=== PATIENT | female | born 1995 | race Two or more races ===

== ENCOUNTER 2020-06-09 06:06 | Emergency (ER) | payer OTHER ==
[2020-06-09] MEDS ORDERED: ONDANSETRON HCL INJ/PF 4 MG/2 ML SDV IV ONE (08:23)
[2020-06-09] MEDS ORDERED: NORMAL SALINE 1000 ML 1,000 ML IV ONE (08:23)
--- NOTE | 2020-06-09 08:26 | ER Document Report ---
ED GI/ - General Chief Complaint: Nausea/Vomiting Stated Complaint: NAUSEA/VOMITING APPROX 8WKS PREG Time Seen by Provider: 06/09/20 08:21 Notes: CHIEF COMPLAINT: Vomiting and pelvic pain HPI: 24-year-old female presenting to the emergency department complaining of vomiting and pelvic pain. Patient states she developed nausea vomiting over the last 2 days along with significant heartburn. States this was similar to when she was with her son. Patient took a test 2 days ago and it was positive. She believes she is approximately 8 weeks by dates. No vaginal bleeding or discharge but does report right pelvic pain intermittently. Has not yet seen [facility]. ROS: See HPI - all other systems were reviewed and are otherwise negative Constitutional: no fever or recent illness Eyes: no drainage, no blurred vision ENT: no runny nose, no sore throat Cardiovascular: no chest pain Resp: no SOB, no cough GI: + vomiting, no diarrhea, positive pelvic abdominal pain : no dysuria, no vaginal discharge, no vaginal bleeding Integumentary: no rash Allergy: no hives Musculoskeletal: no extremity pain or swelling Neurological: no numbness/tingling, no weakness MEDICATIONS: I agree with the patient medications as charted by the RN. ALLERGIES: I agree with the allergies as charted by the RN. PAST MEDICAL HISTORY/PAST SURGICAL HISTORY: Reviewed and agree as charted by RN. SOCIAL HISTORY: Reviewed and agree as charted by RN. FAMILY HISTORY: No significant familial comorbid conditions directly related to patient complaint EXAM: Reviewed vital signs as charted by RN. CONSTITUTIONAL: Alert and oriented and responds appropriately to questions. Well-appearing; well-nourished HEAD: Normocephalic; atraumatic EYES: PERRL; Conjunctivae clear, sclerae non-icteric ENT: normal nose; no rhinorrhea; moist mucous membranes; pharynx without lesions noted NECK: Supple without meningismus; non-tender; no cervical lymphadenopathy, no masses CARD: RRR; no murmurs, no clicks, no rubs, no gallops; symmetric distal pulses RESP: Normal chest excursion without splinting or tachypnea; breath sounds clear and equal bilaterally; no wheezes, no rhonchi, no rales, ABD/GI: Normal bowel sounds; non-distended; soft, non-tender, no rebound, no guarding; no palpable organomegaly or masses : Female nurse prescription benefit specialist present. External genitalia normal. No skin lesions noted. Pelvic Exam: No active bleeding. No purulent discharge. Cervix appears normal. No CMT. cervical loss is closed. No lesions or masses. Uterus enlarged consistent with 6 to 8-week gestation and non tender. Right/Left adnexa normal size and non tender. BACK: The back appears normal and is non-tender to palpation, there is no CVA tenderness EXT: Normal ROM in all joints; non-tender to palpation; no cyanosis, no effusions, no edema SKIN: Normal color for age and race; warm; dry; good turgor; no acute lesions noted NEURO: Moves all extremities equally; Motor and sensory function intact PSYCH: The patient's mood and manner are appropriate. Grooming and personal hygiene are appropriate. MDM: 24-year-old female presenting with pelvic pain nausea vomiting with . Will obtain screening labs, pelvic ultrasound to evaluate for possible ectopic - Related Data Allergies/Adverse Reactions: No Known Allergies Allergy (Unverified 06/09/20 06:15) Home Medications: Naproxen Past Medical History - Social History Smoking Status: Current Every Day Smoker Frequency of alcohol use: None Drug Abuse: None Family History: Reviewed & Not Pertinent Patient has homicidal ideation: No Past Surgical History: Reports: Hx Section Physical Exam - Vital signs Vitals: Temp Pulse Resp BP Pulse Ox 98.6 F 80 15 170/102 H 98 06/09/20 06:21 06/09/20 06:21 06/09/20 06:21 06/09/20 06:21 06/09/20 06:21 Course - Re-evaluation Re-evalutation: 06/09/20 10:11 Discussed evaluation and results with the patient and her spouse. They have an appointment on Friday at [facility]. Will also give referral to [facility]. Will place patient on Pepcid for reflux. Will place patient on Flagyl for vaginitis. Will place patient on Zofran for nausea. Will place patient on vitamins 06/09/20 10:15 I did discuss with the patient the need to make sure that she gets her blood pressure checked by the [facility] for reevaluation - Vital Signs Vital signs: Temp Pulse Resp BP Pulse Ox 98.6 F 80 15 150/79 H 98 06/09/20 06:21 06/09/20 06:21 06/09/20 06:21 06/09/20 08:24 06/09/20 06:21 - Laboratory Result Diagrams: 06/09/20 08:30 06/09/20 08:30 Laboratory results interpreted by me: 06/09/20 06/09/20 06/09/20 08:30 08:30 08:30 WBC 11.2 H RDW 14.1 H Sodium 136.5 L Beta HCG, Quant 51689.00 H Urine Protein 30 H Urine Ketones 20 H Urine Blood SMALL H Discharge - Discharge Clinical Impression: Reflux gastritis, Bacterial vaginitis Nausea & vomiting Qualifiers: Vomiting type: unspecified Vomiting Intractability: non-intractable Qualified Code(s): R11.2 - Nausea with vomiting, unspecified Qualifiers: Weeks of gestation: less than 8 weeks Qualified Code(s): Z3A.01 - Less than 8 weeks gestation of Ovarian cyst Qualifiers: Laterality: right Qualified Code(s): N83.201 - Unspecified ovarian cyst, right side Subchorionic hemorrhage Qualifiers: Fetus number: single or unspecified fetus Trimester: first trimester Qualified Code(s): O41.8X10 - Other specified disorders of amniotic fluid and membranes, first trimester, not applicable or unspecified; O46.8X1 - Other antepartum hemorrhage, first trimester Condition: Stable Disposition: HOME, SELF-CARE Additional Instructions: Take the medications as prescribed. Follow-up with [facility] for further evaluation and treatment call for appointment. Low grease low spice diet. Do not eat within 2 hours of going to sleep. Elevate the head of your bed 6 inches to help with reflux symptoms. If you have onset of vaginal bleeding return for significant bleeding where you are saturating greater than 2 pads per hour for 2 hours consecutively Prescriptions: Metronidazole [Flagyl 500 mg Tablet] 500 mg PO BID #14 tablet Famotidine [Pepcid 20 mg Tablet] 20 mg PO BID #20 tablet No122/Iron/Folic Acid [ Multi Tablet] 1 each PO DAILY #30 tablet Ondansetron [Zofran Odt 4 mg Tablet] 1 - 2 tab PO Q4H PRN #15 tab.rapdis PRN Reason: For Nausea/Vomiting Referrals: TIKA RODRIGUES MD [ACTIVE STAFF] - Follow up as needed
[2020-06-09 08:56] LABS: ABSOLUTE BASOPHILS # (AUTO) 0.1 10^3/uL (0.0-0.2); ABSOLUTE EOSINOPHILS # (AUTO) 0.1 10^3/uL (0.0-0.6); ABSOLUTE LYMPHOCYTES (AUTO) 2.9 10^3/uL (0.5-4.7); ABSOLUTE MONOCYTES (AUTO) 0.8 10^3/uL (0.1-1.4); ABSOLUTE NEUT (AUTO) 7.3 10^3/uL (1.7-8.2); BASOPHILS % (AUTO) 0.6 % (0-2); EOSINOPHILS % (AUTO) 0.8 % (0-6); HEMATOCRIT 41.9 % (36.0-47.0); HEMOGLOBIN 14.4 g/dL (12.0-15.5); LYMPHOCYTES % (AUTO) 26.2 % (13-45); MEAN CORPUSCULAR HEMOGLOBIN 29.1 pg (27.0-33.4); MEAN CORPUSCULAR HGB CONC 34.4 g/dL (32.0-36.0); MEAN CORPUSCULAR VOLUME 85 fl (80-97); MONOCYTES % (AUTO) 6.8 % (3-13); PLATELET COUNT 343 10^3/uL (150-450); RED BLOOD COUNT 4.95 10^6/uL (3.72-5.28); RED CELL DISTRIBUTION WIDTH 14.1 % (11.5-14.0); SEGMENTED NEUTROPHILS % (AUTO) 65.6 % (42-78); TOTAL CELLS COUNTED % (AUTO) 100 %; WHITE BLOOD COUNT 11.2 10^3/uL (4.0-10.5)
[2020-06-09 09:14] LABS: BLOOD UREA NITROGEN 9 mg/dL (7-20); CALCIUM 9.7 mg/dL (8.4-10.2); GLUCOSE 99 mg/dL (75-110)
[2020-06-09 09:15] LABS: ALBUMIN 4.5 g/dL (3.5-5.0); ALKALINE PHOSPHATASE 63 U/L (38-126); ANION GAP 8 (5-19); APPEARANCE,URINE SLIGHTLY-CLOUDY; ASPARTATE AMINO TRANSFERASE 25 U/L (14-36); BILIRUBIN,TOTAL 0.4 mg/dL (0.2-1.3); BILIRUBIN,URINE NEGATIVE (NEGATIVE); CARBON DIOXIDE 24 mmol/L (22-30); CHLORIDE 105 mmol/L (98-107); COLOR,URINE YELLOW; GLUCOSE, URINE NEGATIVE (NEGATIVE); KETONES,URINE 20 mg/dL (NEGATIVE); LEUKOCYTE ESTERASE,URINE NEGATIVE (NEGATIVE); NITRITE,URINE NEGATIVE (NEGATIVE); POTASSIUM 4.3 mmol/L (3.6-5.0); PROTEIN,URINE 30 mg/dL (NEGATIVE); URINE SPECIFIC GRAVITY 1.031; UROBILINOGEN,URINE NEGATIVE mg/dL (<2.0)
[2020-06-09 09:48] LABS: BACTERIA (WET MOUNT) 4+ BACTERIA SEEN; EPITHELIALS (WET MOUNT) 3+ EPITHELIALS SEEN; RBCS (WET MOUNT) RARE RBCS SEEN; T.VAGINALIS (WET MOUNT) NO TRICHOMONAS SEEN; WBCS (WET MOUNT) RARE WBCS SEEN; YEAST (WET MOUNT) NO YEAST SEEN
--- NOTE | 2020-06-09 10:00 | RADIOLOGY REPORT (SQ) ---
EXAM DESCRIPTION: U/S OB TRANSVAG W/DOPPLER IMAGES COMPLETED DATE/TIME: 06/09/2020 9:30 am REASON FOR STUDY: right pelvic pain COMPARISON: None. TECHNIQUE: Transvaginal static and realtime grayscale images acquired of the pelvis. Additional kathryn cted spectral and color Doppler images recorded. All images stored on PACs. bHCG: Not available. CLINICAL DATES: LMP 04/12/2020. AMIE based on LMP 01/17/2021. EGA based on LMP 8 weeks 2 days. LIMITATIONS: None. FINDINGS: FETUS: Single Living intrauterine . ULTRASOUND EGA: 7 weeks 1 days. ULTRASOUND AMIE: 01/25/2021. CRL: 1 cm. FHR: 152 beats per minute. SURVEY: Too early to assess. AMNIOTIC FLUID: Too early to assess. PLACENTA: Too early to assess. SUBCHORIONIC BLEED: Yes. It measures 2.6 x 3.3 x 1.6 cm. UTERUS: The uterus measures 10.3 x 7.8 x 6.4 cm. There is a gestational sac that contains a yolk sac and an embryo. CERVICAL LENGTH: 3.2 cm. Closed. RIGHT ADNEXA: The right ovary measures 5.5 x 4.2 x 4.2 cm and on Doppler there is intact arterial inf low and venous outflow within the ovarian stroma per. There is a anechoic cyst with posterior acoust ic enhancement in the cyst that measures 4.6 x 3.8 x 3.7 cm. LEFT ADNEXA: Unable to visualize the left ovary due to overlying bowel. There is no adnexal mass. FREE FLUID: None. OTHER: No other finding. IMPRESSION: LIVE INTRAUTERINE . EGA 7 weeks 1 day based on ultrasound (since there is a discrepancy between the ultrasound dating and LMP dating that is more than 5 days). Subchronic hemorrhage that measures 2.6 x 3.3 x 1.6 cm. Right ovarian cyst that measures 4.6 x 3.8 x 3.7 cm. Nonvisualization of the left ovary. There is no adnexal mass. Trimester of : First trimester - 0 to 13 weeks. TECHNICAL DOCUMENTATION: JOB ID: [id number] [employer]- All Rights Reserved rev-04/17 Reading location - IP/workstation name: [email or web address]
[2020-06-09 10:37] VITALS: BP 123/76
[2020-06-09 11:19] LABS: CHLAM PCR NOT DETECTED (NOT DETECT)
== END 2020-06-09 10:37 | disposition home or self-care (01) ==
LOC: ER 06:06
DX: O41.8X10 Other specified disorders of amniotic fluid and membranes, first trimester, not applicable or unspecified (principal); O34.81 Maternal care for other abnormalities of pelvic organs, first trimester; N83.201 Unspecified ovarian cyst, right side; K29.70 Gastritis, unspecified, without bleeding; O23.591 Infection of other part of genital tract in pregnancy, first trimester; B96.89 Other specified bacterial agents as the cause of diseases classified elsewhere; O21.9 Vomiting of pregnancy, unspecified; Z3A.01 Less than 8 weeks gestation of pregnancy
CPT/HCPCS: 99284; 96361; 96374; 86900; 86901; 36415; 87210; 84702; 83690; 85025; 80053; 81001; 87491; 87591; 76817; 93976; J2405; J7030